=== PATIENT | female | born 1985 | race Caucasian/White ===

== ENCOUNTER → 2016-11-25 | Outpatient (CLI) | payer OTHER ==
--- NOTE | 2016-11-25 17:46 | MRI ---
EXAM DESCRIPTION: MRI right ankle. CLINICAL HISTORY: Synovial chondromatosis. Ankle pain and swelling COMPARISON: None. TECHNIQUE: Multi planar, multi sequence MRI evaluation of the right ankle. FINDINGS: Hypertrophic osseous irregularity of the anterior aspect of the inferolateral process of the talus. This is in contact with the calcaneus at the angle of Gissane with small spurs and edema along both sides of this abnormal articulation. There is a joint effusion of the posterior subtalar joint with fluid in the posterior recess. There is also a distended joint capsule along the anterior aspect of the posterior subtalar joint extending into the lateral sinus tarsi. Fluid and numerous ovoid loose bodies, approximately 12 within the recess along the lateral sinus tarsi Small marginal osteophytes along the posterior subtalar joint. Focal 8 mm region of chondrosis inferior talus along the anteromedial aspect of the posterior subtalar joint sagittal STIR image 11. No chondrosis along the calcaneal side of the joint. No loose body in the posterior recess Moderate-sized tibiotalar joint effusion without osteochondral lesion, focal synovitis or intra-articular body No osteochondral lesion calcaneocuboid, talonavicular, navicular cuneiform or tarsometatarsal Tibiofibular syndesmosis and ligaments are intact. Talofibular and calcaneofibular ligaments are normal. Small posterior tibial tendon sheath effusion with mild insertional tendinosis. No tendon tear. Calcaneonavicular ligament intact. Flexor digitorum and flexor hallucis tendons are normal. There is moderate volume of fluid in the flexor hallucis tendon sheath behind the ankle and also along the arch of the foot. Thin septation within the tendon sheath effusion along the arch of the foot without loose body or focal synovitis. Peroneus brevis tendinosis and possible low-grade interstitial partial tear of the tendon distal to the peroneal tubercle. Peroneus longus tendon is normal. Dorsiflexion tendons are normal. Achilles tendon is normal. Normal plantar fascia IMPRESSION: Hypertrophic abnormal articulation of the anterior aspect inferolateral process of the talus with the calcaneus at the angle of Gissane. Associated joint recess/synovial cyst extending into the sinus tarsi with multiple loose bodies. This is consistent with focal synovial chondromatosis Small region of chondrosis in the posterior subtalar joint involving the anteromedial talus. The posterior subtalar joint is otherwise unremarkable. Joint and tendon sheath effusions posterior subtalar, tibiotalar and along the flexor hallucis tendon sheath without other focal synovitis or loose body/chondromatosis Electronically signed by: Dar Price MD 11/25/2016 17:44
== END ==
LOC: MRI 14:09
PROVIDERS: ATTEND Orthopaedic Surgery
DX: D48.1 Neoplasm of uncertain behavior of connective and other soft tissue (principal)

== ENCOUNTER → 2018-07-08 | Outpatient (CLI) | payer BC | LOC: GMAJS 14:58 | PROVIDERS: ATTEND Physician Assistant | DX: R10.84 Generalized abdominal pain (principal) ==

== ENCOUNTER → 2018-07-08 | Outpatient (CLI) | payer BC ==
--- NOTE | 2018-07-08 12:49 | US ---
Procedure: US ABDOMEN Exam Date: 07/08/2018 Ordering Provider: DAVID BUTT Clinical Indication: GEN ABD PAIN Comparison: None Technique: Real-time ultrasonography was obtained over the abdominal viscera and claims customer service representative images were recorded. Findings: The liver is enlarged measuring up to 16.8 cm. There is diffuse increased echogenicity of the liver consistent with fatty infiltration. There are no intrahepatic masses. There is no intrahepatic ductal dilatation. The gallbladder is normal in size and appearance. There are no gallstones. There is no gallbladder wall thickening or pericholecystic fluid. The extrahepatic common duct is normal in size measuring 4.7 mm. The spleen is normal in size and contour. There is normal internal echogenicity of the spleen. There are no splenic masses. The visualized portions of the pancreas are normal. The aorta has a normal appearance. The right kidney measures 10.5 cm in bipolar length. Cortical thickness and echogenicity are normal. There are no masses, calculi, or hydronephrosis. The left kidney measures 10.7 cm in bipolar length. Cortical thickness and echogenicity are normal. There are no masses, calculi, or hydronephrosis. There is a 2.5 cm cyst in the lower pole. There is no ascites. Impression: 1. Hepatomegaly and hepatic steatosis. 2. Left renal cyst. Electronically signed by: Erik Todd MD 07/08/2018 12:48 PM CDT
== END ==
LOC: US 11:16
PROVIDERS: ATTEND Physician Assistant
DX: R10.84 Generalized abdominal pain (principal); R16.0 Hepatomegaly, not elsewhere classified; K76.0 Fatty (change of) liver, not elsewhere classified; N28.1 Cyst of kidney, acquired

== ENCOUNTER → 2020-08-24 | Outpatient (CLI) | payer BC | LOC: YCFC.O 09:35 | PROVIDERS: ATTEND Nurse Practitioner Family | DX: Z20.828 Contact with and (suspected) exposure to other viral communicable diseases (principal) ==